=== PATIENT | male | born 1985 | race African-American/Black ===

== ENCOUNTER → 2021-09-06 11:27 | Outpatient (BNVA) | payer OTHER, SELFPAY | PROVIDERS: PCP Nurse Practitioner Family; Visit Provider Nurse Practitioner Family | DX: Z12.11 Encounter for screening for malignant neoplasm of colon (principal); Z80.0 Family history of malignant neoplasm of digestive organs | CPT/HCPCS: 99202 ==

== ENCOUNTER 2022-03-01 09:14 | Day surgery (SDC) | payer OTHER, SELFPAY ==
--- NOTE | 2022-02-28 10:26 | P.CONAN_ITS ---
Documented by User: Hilary Jacobs NP 02/28/22 10:26 HPI - Anesthesia Eval Consult details Narrative: 36yo M for Colonoscopy PMFSH Active Problems Active Problems: All Active Problems (Updated 12/29/21 @ 08:27 by Dominga Dao RN) Anemia (Acute) Family hx of colon cancer (Acute) Anal fissure (Acute) Past Medical History Medical History Anal fissure Anemia Family history of colon cancer Family History Family History Unknown Substance use disorder Brother Diabetes Family history of problems with anesthesia: No Surgical History Surgical History Surgical history unknown History of Problems with Anesthesia: No Social History Social History Housing: House Patient Tobacco Use Status: Never used Tobacco e-Cigarette/Vaping Use: Never Used Second Hand Smoke Exposure: No Use of substances other than those prescribed or required for medical reasons: No Are you DNR?: No Advance Directives: No Advance Directives Information Provided: Yes service: No Current occupational status: employed Current occupation: consulting property manager Current occupational exposures/hazards: No Cognitive needs: No Hearing needs: No Vision needs: No Meds Allergies Allergy/AdvReac Type Severity Reaction Status Date / Time No Known Allergies Allergy Verified 03/01/22 10:38 Home Medications Medication Instructions Recorded Confirmed Last Taken Type ferrous sulfate 325 mg (65 mg 325 mg PO DAILY 11/06/21 02/23/22 Unknown History iron) tablet (Feosol) multivitamin 1 tab PO DAILY 11/06/21 02/23/22 Unknown History psyllium husk 0.4 gram capsule 0.4 g PO BEDTIME 11/06/21 02/23/22 Unknown History (Daily Fiber) Exam Exam Date and Time: February 28, 2022 1026 Assessment and Plan Assessment Anesthesia Assessment: Chart Reviewed Final Anesthetic Review Family History of Problems with Anesthesia: No History of Problems with Anesthesia: No Documented by User: Yolanda Garza MD 03/01/22 11:13 PMFSH Past Medical History Medical History Anal fissure Anemia Family history of colon cancer Functional capacity: independent ambulation Family History Family History Unknown Substance use disorder Brother Diabetes Surgical History Surgical History Surgical history unknown Social History Social History Housing: House Patient Tobacco Use Status: Never used Tobacco e-Cigarette/Vaping Use: Never Used Second Hand Smoke Exposure: No Use of substances other than those prescribed or required for medical reasons: No Are you DNR?: No Advance Directives: No Advance Directives Information Provided: Yes service: No Current occupational status: employed Current occupation: consulting property manager Current occupational exposures/hazards: No Cognitive needs: No Hearing needs: No Vision needs: No Meds Allergies Allergy/AdvReac Type Severity Reaction Status Date / Time No Known Allergies Allergy Verified 03/01/22 10:38 Home Medications Medication Instructions Recorded Confirmed Last Taken Type ferrous sulfate 325 mg (65 mg 325 mg PO DAILY 11/06/21 02/23/22 Unknown History iron) tablet (Feosol) multivitamin 1 tab PO DAILY 11/06/21 02/23/22 Unknown History psyllium husk 0.4 gram capsule 0.4 g PO BEDTIME 11/06/21 02/23/22 Unknown History (Daily Fiber)
[2022-03-01 09:30] VITALS: BP 110/64; PULSE 58; RESP 18; TEMP 36.3; O2SAT 98; BMI 29.8
--- NOTE | 2022-03-01 09:49 | MHC.SHP ---
Pre-Procedural Eval Section A Date of Service: 03/01/22 Section B Chief Complaint: hx of rectal bleeding, anemia Details of Present Illness: 36 y.o M with recent hx of rectal bleeding attributed to anal fissure. States anal fissure has now healed, and has not had any bleeding since. Also noted to be anemic with low MCV in the 50s back in 2020. No recent blood work. ? hemoglobinopathy Here for colonoscopy Present Medications: see Short Stay Collaborative assessment Medical History: No relevant PMH History of Previous Operations: No relevant previous surgery Allergies: Allergies Allergy/AdvReac Type Severity Reaction Status Date / Time penicillin V Allergy Unknown Unknown Verified 02/23/22 14:22 Review of Systems Review of Systems Comment: 10 point ROS negative except as above Exam Exam Comment: Gen appear: No acute distress, well nourished HEENT: no icterus Chest: No overt resp distress Abd: soft, nontender, nondistended Psych: Stable affect, answering questions appropriately Neuro: A/Ox3 noted to move all extremities spontaneously Ext: no peripheral edema Plan Diagnosis/Plan: Unchanged I have reviewed the history and physical and performed a pertinent physical examination on my patient. No changes have occurred unless specified. Time Spent With Patient Time: Total time managing care of this patient today ____ minutes.
[2022-03-01] MEDS: Lactated Ringers 1,000 ML 100 ML IVCONT (09:53)
--- NOTE | 2022-03-01 10:05 | P.OP_ITS ---
Operative Note Operative Note Date of Service: 03/01/22 Narrative: Procedure: Colonoscopy Indication: Hx of rectal bleeding Endoscopist: Anu Albright MD Anesthesia Provider: Bella Edwards CRNA Anesthesia type: MAC Instrument: Olympus [id number]-[id number] Consent: Indication, risks vs benefits, and alternatives were discussed with the patient who gave written informed consent to proceed. EKG, pulse, pulse oximetry and blood pressure were monitored throughout the procedure. Please see anesthesia flowsheet. Procedure: The patient was brought to the procedure room and placed in the left lateral decubitus position. IV medications were administered by the anesthesia provider in attendance. A digital rectal exam was performed which was normal. The colonoscope was then inserted through the anus and advanced through the colon to the cecum at 85 cm,and terminal ileum. Mucosa was carefully examined under high definition white light as the instrument was slowly withdrawn in a retrograde panoramic fashion. Retroflexion was performed in rectum. The procedure was not difficult. There were no immediate obvious complications. The quality of the prep was BBPS: 1+2+3 = inadequate in right colon. Withdrawal time minutes. Limitations: Poor prep. Findings: Mucosa: Semi-solid stool limited visualisation of the mucosa of the right sided colon. No overt mass seen. Terminal ileum mucosa was normal. Transverse colon and left colon mucosa normal to the extent visualised. Protruding lesions: * Small internal hemorrhoids without stigmata of recent bleeding. Impression: 1. Poor prep. 2. Internal hemorrhoids Recommendations: - While the R side of the colon was poorly visualised, the isolated episode of rectal outlet bleeding and painful defecation likely secondary to anal fissure as originally suspected. Patient currently asymptomatic. - If has no further episodes, repeat colonoscopy at 43y.o for CRC screening purpose.
[2022-03-01 10:41] VITALS: BP 93/42; PULSE 83; RESP 12; TEMP 36.2; O2SAT 97; O2SAT 99
[2022-03-01 10:56] VITALS: BP 96/60; PULSE 63; RESP 14; O2SAT 100
[2022-03-01 11:07] VITALS: BP 106/62; PULSE 61; RESP 14; TEMP 36.1; O2SAT 99
--- NOTE | 2022-03-01 11:17 | HO.POSTANES ---
Post Anesthesia Evaluation Post Anesthesia Evaluation Vital Signs: Vital Signs Temp Pulse Resp BP Pulse Ox O2 Del Method 03/01/22 11:07 97 F 61 14 106/62 99 Room Air 03/01/22 10:56 63 14 96/60 100 Room Air 03/01/22 10:41 97.1 F 83 12 93/42 L 99 Room Air 03/01/22 10:41 97.1 F 83 12 93/42 L 97 Room Air 03/01/22 09:30 97.3 F 58 18 110/64 98 Room Air Anesthesia: Monitored Mental Status: Awake Pain Control: Satisfactory Nausea/Vomiting: None Hydration: Adequate Anesthesia-Related Issues: No Anes. Related Issues
[2022-03-01 12:46] LABS: Hematocrit 43.2 % (42.0-52.0); Hemoglobin 12.7 g/dl (14.0-18.0); Mean Corpuscular HGB Conc 29.4 g/dl (31.0-36.0); Mean Corpuscular Hemoglobin 17.8 pg (27.0-33.0); Platelet Count 176 X10*3/uL (160-400); Red Blood Count 7.13 X10*6/uL (4.60-5.80); Red Cell Distribution Width 18.2 % (11.0-16.0); White Blood Count 4.3 X10*3/uL (4.8-10.8)
[2022-03-01 12:47] LABS: Mean Corpuscular Volume 60.6 fL (80.0-98.0)
[2022-03-01 13:54] LABS: Sickle Cell Scr NEGATIVE (NEGATIVE)
[2022-03-01 14:15] LABS: Ferritin 222 ng/mL (20-250)
[2022-03-01 14:30] LABS: Iron 98 mcg/dL (45-160); Percent Iron Saturation 35 % (15-50); Total Iron Binding Capacity 279 mcg/dL (228-428); Unsaturated Iron Binding 181 ug/dL
[2022-03-06 22:53] LABS: Hematocrit 42.5 % (38.5-50.0); Hemoglobin 12.7 g/dL (13.2-17.1); MCH 17.8 pg (27.0-33.0); MCV 59.5 fL (80.0-100.0); RBC 7.14 Million/uL (4.20-5.80); RDW 18.9 % (11.0-15.0)
== END 2022-03-01 11:43 | disposition home or self-care (01) ==
PROVIDERS: PCP Nurse Practitioner Family; Visit Provider Internal Medicine
PROC: 0DJD8ZZ Inspection of Lower Intestinal Tract, Via Natural or Artificial Opening Endoscopic (ICD-10-PCS; CPT 45378; principal; 2022-03-01 10:00)
DX: K62.5 Hemorrhage of anus and rectum (principal); D64.9 Anemia, unspecified; K64.8 Other hemorrhoids; Z79.899 Other long term (current) drug therapy
CPT/HCPCS: 45378; 36415; 82728; 83020; 83540; 85014; 85018; 85027; 85041; 85660

== ENCOUNTER → 2022-03-05 12:04 | Outpatient (BNVA) | payer OTHER, SELFPAY | PROVIDERS: PCP Nurse Practitioner Family; Visit Provider Nurse Practitioner Family | DX: D50.9 Iron deficiency anemia, unspecified (principal); D56.9 Thalassemia, unspecified; Z98.890 Other specified postprocedural states | CPT/HCPCS: 99212 ==

== ENCOUNTER 2022-03-23 12:01 | Outpatient (REF) | payer OTHER, SELFPAY | END 2022-03-23 12:02 | disposition home or self-care (01) | LOC: HO.HOSX 12:01 | PROVIDERS: Visit Provider Physician Assistant | DX: Z13.89 Encounter for screening for other disorder (principal) ==

== ENCOUNTER → 2024-03-25 11:21 | Outpatient (BNVA) | payer OTHER, SELFPAY | PROVIDERS: PCP Nurse Practitioner Family; Visit Provider Nurse Practitioner Family ==